=== PATIENT | female | born 1995 | race Caucasian/White ===

== ENCOUNTER 2021-11-23 18:17 | Emergency (ER) | payer SELFPAY ==
[~2021-11-23] VITALS: Ht 170.2 cm; Wt 77.0 kg
[2021-11-23 18:21] VITALS: BP 140/90
== END 2021-11-23 18:35 | disposition left against medical advice (07) ==
LOC: ER 18:17
DX: Z53.21 Procedure and treatment not carried out due to patient leaving prior to being seen by health care provider (principal)